=== PATIENT | male | born 1955 | race African-American/Black ===

== ENCOUNTER 2017-05-02 19:41 | Inpatient (IN) | payer OTHER ==
[~2017-05-02] VITALS: Ht 185.4 cm; Wt 80.7 kg
[~2017-05-02 19:41] MED LIST: AMLO2.5T2 PO
[2017-05-02] MEDS ORDERED: ONDANSETRON HCL 4MG/2ML VIAL IV STA (23:39)
[2017-05-02] MEDS ORDERED: LABETALOL HCL 20MG/4ML CARPUJECT IV ONE (23:45)
[2017-05-03] MEDS ORDERED: MORPHINE SULFATE 4 MG/ML CPJ (NOT FOR IM USE) IV ONE
[2017-05-03 00:04] LABS: BASOPHILS % 0.6 % (0.0-2.0); EOSINOPHILS % 0.3 % (0.0-5.0); HEMATOCRIT. 43.7 % (42.0-52.0); HEMOGLOBIN. 14.3 g/dL (14.0-18.0); LYMPHOCYTES % 17.3 % (20.0-50.0); MEAN CORPUSCULAR HEMOGLOBIN 28.7 pg (28.0-32.0); MEAN CORPUSCULAR VOLUME 87.9 fL (80.0-94.0); MONOCYTES % 8.8 % (2.0-8.0); PLATELET 272 x1000/uL (130-400); RED BLOOD CELL COUNT 4.98 mill/uL (4.7-6.1); RED CELL DISTRIBUTION WIDTH 15.6 % (11.6-14.6)
[2017-05-03 00:06] LABS: INR 1.1; PROTHROMBIN TIME 11.4 sec (9.4-11.6)
[2017-05-03 00:15] LABS: CARBON DIOXIDE 26 mEq/L (21-32); CHLORIDE 106 mEq/L (98-107); TROPONIN I < 0.02 ng/mL (0.00-0.04)
[2017-05-03] MEDS ORDERED: LABETALOL 5MG/ML SYR 20 MG/4 ML SYRINGE IV NR (00:30)
[2017-05-03] MEDS ORDERED: GUAIFENESIN 200MG/10ML SUGAR FREE UDC PO PRN (11:45)
[2017-05-03] MEDS ORDERED: MAGNESIUM/ALUMINUM HYDROXIDE/SIMETHICONE 30ML UDC PO PRN (11:45)
[2017-05-03] MEDS ORDERED: IPRATROPIUM/ALBUTEROL 0.5-3(2.5)MG/3ML NEB INH PRN (11:45)
[2017-05-03] MEDS: ONDANSETRON HCL 4MG/2ML VIAL IV PRN (13:52)
[2017-05-03] MEDS: CLONIDINE 0.1MG TABLET PO PRN ×2 (13:53→22:28)
[2017-05-03 14:52] VITALS: BP 156/106
[2017-05-03 15:08] VITALS: BP 149/107
[2017-05-03 16:00] VITALS: BP 140/101
[2017-05-03] MEDS: ENOXAPARIN 40MG/0.4ML SYR SUBCUT SCH (16:04)
[2017-05-03 18:00] VITALS: BP 146/102
[2017-05-03] MEDS ORDERED: AMLODIPINE 10MG TABLET PO NR (19:00)
[2017-05-03 19:08] LABS: CARBON DIOXIDE 30 mEq/L (21-32); CHLORIDE 106 mEq/L (98-107); CREATINE KINASE 224 IU/L (39-308); TROPONIN I < 0.02 ng/mL (0.00-0.04)
[2017-05-03 19:21] LABS: HEPATITIS B SURFACE ANTIGEN NEGATIVE
[2017-05-03 19:50] LABS: HEPATITIS B CORE AB IGM NEGATIVE
[2017-05-03 19:51] LABS: HEPATITIS A AB IGM NEGATIVE (NEGATIVE)
[2017-05-03 20:02] VITALS: BP 168/112
[2017-05-03] MEDS ORDERED: IOHEXOL-300 100 ML BOTTLE ONE (20:51)
[2017-05-03 22:01] VITALS: BP 161/104
[2017-05-03] MEDS: HYDROCODONE/ACETAMINOPHEN 5/325MG TABLET PO PRN (22:27)
[2017-05-04] VITALS (11 sets, daily range): BP systolic 133–168; BP diastolic 80–115
[2017-05-04 00:55] LABS: CREATINE KINASE 207 IU/L (39-308); CREATINE KINASE MB FRACTION 3.2 ng/mL (0.5-3.6); TROPONIN I < 0.02 ng/mL (0.00-0.04)
[2017-05-04 06:03] LABS: BASOPHILS % 0.4 % (0.0-2.0); EOSINOPHILS % 1.5 % (0.0-5.0); HEMATOCRIT. 43.2 % (42.0-52.0); HEMOGLOBIN. 14.1 g/dL (14.0-18.0); LYMPHOCYTES % 23.5 % (20.0-50.0); MEAN CORPUSCULAR HEMOGLOBIN 28.6 pg (28.0-32.0); MEAN CORPUSCULAR VOLUME 87.9 fL (80.0-94.0); MEAN PLATELET VOLUME 7.5 fl (7.4-10.4); MONOCYTES % 4.1 % (2.0-8.0); NEUTROPHILS % 70.5 % (40.0-76.0); PLATELET 242 x1000/uL (130-400); RED BLOOD CELL COUNT 4.92 mill/uL (4.7-6.1); RED CELL DISTRIBUTION WIDTH 15.2 % (11.6-14.6)
[2017-05-04] MEDS: AMLODIPINE 5MG TABLET PO SCH (08:28)
[2017-05-04] MEDS: CLONIDINE 0.1MG TABLET PO PRN ×2 (08:34→18:27)
[2017-05-04] MEDS: HYDROCODONE/ACETAMINOPHEN 5/325MG TABLET PO PRN (09:55)
[2017-05-04] MEDS: ONDANSETRON HCL 4MG/2ML VIAL IV PRN ×2 (12:21→19:27)
[2017-05-04] MEDS: ENOXAPARIN 40MG/0.4ML SYR SUBCUT SCH (13:22)
[2017-05-04] MEDS ORDERED: DIPHENHYDRAMINE 50MG/ML VIAL IV PRN (18:15)
[2017-05-04] MEDS: HYDROMORPHONE HCL/PF 2MG/ML CPJ IV PRN (18:27)
[2017-05-05] VITALS (13 sets, daily range): BP systolic 129–153; BP diastolic 88–117
[2017-05-05] MEDS ORDERED: AMLODIPINE 10MG TABLET PO SCH (00:56)
[2017-05-05] MEDS: BLOOD SUGAR DIAGNOSTIC STRIP TEST SCH ×4 (06:50→20:36)
[2017-05-05] MEDS: HYDROMORPHONE HCL/PF 2MG/ML CPJ IV PRN ×2 (07:28→17:46)
[2017-05-05 07:40] LABS: CHLORIDE 100 mEq/L (98-107)
[2017-05-05 08:37] LABS: CARBON DIOXIDE 23 mEq/L (21-32); PHOSPHORUS 3.5 mg/dL (2.5-4.9)
[2017-05-05] MEDS: CARVEDILOL 12.5MG TABLET PO SCH ×2 (08:44→21:28)
[2017-05-05] MEDS: AMLODIPINE 5MG TABLET PO SCH (08:45)
[2017-05-05] MEDS: SPIRONOLACTONE 25MG TABLET PO SCH (09:00)
[2017-05-05] MEDS: ENOXAPARIN 40MG/0.4ML SYR SUBCUT SCH (14:23)
[2017-05-05] MEDS: ACETAMINOPHEN 325MG TABLET PO PRN (16:11)
[2017-05-05] MEDS ORDERED: HYDROMORPHONE HCL 4MG TABLET PO PRN (21:22)
[2017-05-05] MEDS: OXYCODONE HCL 20MG TABLET SR 12HR PO SCH (21:30)
[2017-05-06] VITALS (17 sets, daily range): BP systolic 119–167; BP diastolic 87–107
[2017-05-06] MEDS: BLOOD SUGAR DIAGNOSTIC STRIP TEST SCH ×4 (06:23→20:27)
[2017-05-06] MEDS: AMLODIPINE 5MG TABLET PO SCH (08:08)
[2017-05-06] MEDS: OXYCODONE HCL 20MG TABLET SR 12HR PO SCH ×3 (08:08→21:37)
[2017-05-06] MEDS: SPIRONOLACTONE 25MG TABLET PO SCH (08:09)
[2017-05-06] MEDS: CARVEDILOL 12.5MG TABLET PO SCH ×2 (08:09→20:47)
[2017-05-06] MEDS: DOCUSATE SODIUM 100MG CAPSULE PO PRN ×2 (12:00→20:48)
[2017-05-06] MEDS: ENOXAPARIN 40MG/0.4ML SYR SUBCUT SCH (13:59)
[2017-05-07] VITALS (12 sets, daily range): BP systolic 136–154; BP diastolic 89–107
[2017-05-07] MEDS: BLOOD SUGAR DIAGNOSTIC STRIP TEST SCH ×4 (06:44→21:06)
[2017-05-07] MEDS: SPIRONOLACTONE 25MG TABLET PO SCH (08:04)
[2017-05-07] MEDS: CARVEDILOL 12.5MG TABLET PO SCH ×2 (08:04→20:41)
[2017-05-07] MEDS: DOCUSATE SODIUM 100MG CAPSULE PO PRN (08:04)
[2017-05-07] MEDS: AMLODIPINE 5MG TABLET PO SCH (08:04)
[2017-05-07] MEDS: ENOXAPARIN 40MG/0.4ML SYR SUBCUT SCH (13:07)
[2017-05-07] MEDS: ONDANSETRON HCL 4MG/2ML VIAL IV PRN (13:07)
[2017-05-07] MEDS: OXYCODONE HCL 20MG TABLET SR 12HR PO SCH ×2 (13:10→23:19)
[2017-05-08] VITALS (11 sets, daily range): BP systolic 129–152; BP diastolic 71–109
[2017-05-08] MEDS: BLOOD SUGAR DIAGNOSTIC STRIP TEST SCH ×4 (06:41→21:11)
[2017-05-08] MEDS: AMLODIPINE 5MG TABLET PO SCH (08:10)
[2017-05-08] MEDS: CARVEDILOL 12.5MG TABLET PO SCH ×2 (08:10→20:40)
[2017-05-08] MEDS: SPIRONOLACTONE 25MG TABLET PO SCH (08:10)
[2017-05-08] MEDS: ENOXAPARIN 40MG/0.4ML SYR SUBCUT SCH (12:32)
[2017-05-08] MEDS: OXYCODONE HCL 20MG TABLET SR 12HR PO SCH ×2 (12:32→21:00)
[2017-05-08] MEDS: DOCUSATE SODIUM 100MG CAPSULE PO PRN (20:40)
[2017-05-08] MEDS: ACETAMINOPHEN 325MG TABLET PO PRN (23:40)
[2017-05-09] VITALS (9 sets, daily range): BP systolic 131–156; BP diastolic 73–110
[2017-05-09] MEDS: BLOOD SUGAR DIAGNOSTIC STRIP TEST SCH ×2 (06:27→11:26)
[2017-05-09] MEDS: AMLODIPINE 5MG TABLET PO SCH (08:10)
[2017-05-09] MEDS: OXYCODONE HCL 20MG TABLET SR 12HR PO SCH (08:11)
[2017-05-09] MEDS: CARVEDILOL 12.5MG TABLET PO SCH (08:11)
[2017-05-09] MEDS: SPIRONOLACTONE 25MG TABLET PO SCH (08:11)
[2017-05-09] MEDS: DOCUSATE SODIUM 100MG CAPSULE PO PRN (08:12)
== END 2017-05-09 14:55 | disposition home or self-care (01) | DRG 305 ==
LOC: ER 21:14 → 3WST 05-03 03:32 → ENRESERV 05-03 13:32
PROVIDERS: ADMIT Internal Medicine; ATTEND Internal Medicine
DX: I16.0 Hypertensive urgency (principal); C78.7 Secondary malignant neoplasm of liver and intrahepatic bile duct; C18.9 Malignant neoplasm of colon, unspecified; I10 Essential (primary) hypertension; R74.0 Nonspecific elevation of levels of transaminase and lactic acid dehydrogenase [LDH]; M10.9 Gout, unspecified; G62.9 Polyneuropathy, unspecified; R51 Headache; R04.0 Epistaxis; Z90.49 Acquired absence of other specified parts of digestive tract; Z91.14 Patient's other noncompliance with medication regimen; Z79.899 Other long term (current) drug therapy; Z92.21 Personal history of antineoplastic chemotherapy
CPT/HCPCS: 36415; 70450; 71045; 74177; 76700; 80048; 80053; 80061; 80069; 80076; 82550; 82553; 82962; 83036; 83735; 84100; 84443; 84484; 84550; 85025; 85610; 86705; 86709; 86803; 87340; 93005; 93970; 99285; A4565; J1170; J1650; J2270; J2405; J3490; L3670; Q9967

== ENCOUNTER 2017-07-10 17:59 | Emergency (ER) | payer OTHER ==
[~2017-07-10] VITALS: Ht 185.4 cm; Wt 83.0 kg
[2017-07-10 19:20] LABS: BASOPHILS % 0.3 % (0.0-2.0); EOSINOPHILS % 3.6 % (0.0-5.0); HEMATOCRIT. 43.7 % (42.0-52.0); HEMOGLOBIN. 14.9 g/dL (14.0-18.0); LYMPHOCYTES % 16.6 % (20.0-50.0); MEAN CORPUSCULAR VOLUME 87.8 fL (80.0-94.0); MONOCYTES % 12.5 % (2.0-8.0); PLATELET 361 x1000/uL (130-400); RED BLOOD CELL COUNT 4.98 mill/uL (4.7-6.1); RED CELL DISTRIBUTION WIDTH 14.6 % (11.6-14.6)
[2017-07-10 19:23] LABS: CLARITY URINE CLOUDY (CLEAR); COLOR URINE ORANGE (YELLOW); KETONES URINE NEGATIVE (NEGATIVE); LEUKOCYTE ESTERASE URINE 1+ (NEGATIVE); NITRITE URINE POSITIVE (NEGATIVE); OCCULT BLOOD URINE NEGATIVE (NEGATIVE); PH URINE 5.5 (4.5-8.0); PROTEIN URINE 2+ (NEGATIVE); SPECIFIC GRAVITY URINE 1.026 (1.005-1.030)
[2017-07-10 19:24] LABS: CHLORIDE 102 mEq/L (98-107)
[2017-07-10 19:27] LABS: INR 1.2; PROTHROMBIN TIME 12.1 sec (9.4-11.6)
[2017-07-10] MEDS ORDERED: MORPHINE SULFATE 4 MG/ML CPJ (NOT FOR IM USE) IV STA (21:12)
[2017-07-10] MEDS ORDERED: ONDANSETRON HCL 4MG/2ML VIAL IV STA (21:12)
[2017-07-10] MEDS ORDERED: FAMOTIDINE 20MG/2ML VIAL IV STA (22:21)
[2017-07-10] MEDS ORDERED: DICYCLOMINE 10 MG/5 ML ORAL SYR PO STA (22:21)
[2017-07-10] MEDS ORDERED: MAGNESIUM/ALUMINUM HYDROXIDE/SIMETHICONE 30ML UDC PO STA (22:21)
[2017-07-10] MEDS ORDERED: VISCOUS LIDOCAINE 2% 15 ML UDC PO STA (22:21)
[2017-07-10] MEDS ORDERED: MORPHINE SULFATE 10 MG/ML CPJ IV ONE (23:30)
[2017-07-11 02:40] VITALS: BP 118/74
== END 2017-07-11 03:30 | disposition home or self-care (01) ==
LOC: ER 17:59
DX: N39.0 Urinary tract infection, site not specified (principal); C18.9 Malignant neoplasm of colon, unspecified; C78.7 Secondary malignant neoplasm of liver and intrahepatic bile duct; C78.89 Secondary malignant neoplasm of other digestive organs; B19.20 Unspecified viral hepatitis C without hepatic coma; I10 Essential (primary) hypertension
CPT/HCPCS: 36415; 80053; 81003; 83690; 85025; 85610; 96374; 96375; 96376; 99284; J2270; J2405; J3490; Z7610